=== PATIENT | male | born 1985 | race Caucasian/White ===

== ENCOUNTER 2024-12-19 20:35 | Emergency (ER) | payer OTHER ==
[~2024-12-19] VITALS: Ht 167.6 cm; Wt 65.0 kg
[2024-12-19 20:51] VITALS: O2SAT 99
[2024-12-19] MEDS ORDERED: SUMATRIPTAN SUCCINATE 6MG/0.5ML VIAL SUBCUT ONE (21:15)
[2024-12-19] MEDS ORDERED: KETOROLAC 30MG/ML VIAL IV ONE (21:15)
[2024-12-19] MEDS ORDERED: DEXAMETHASONE 10 MG/ML VIAL IV ONE (21:15)
[2024-12-19] MEDS ORDERED: DIPHENHYDRAMINE 50MG/ML VIAL IV ONE (21:15)
[2024-12-19] MEDS: PROCHLORPERAZINE 10MG/2ML VIAL IV ONE (23:39)
[2024-12-19] MEDS: KETOROLAC 30MG/ML VIAL IV NR (23:39)
[2024-12-19] MEDS: SUMATRIPTAN SUCCINATE 6MG/0.5ML VIAL SUBCUT NR (23:40)
[2024-12-19] MEDS: DIPHENHYDRAMINE 50MG/ML VIAL IV NR (23:40)
[2024-12-19] MEDS: DEXAMETHASONE 10 MG/ML VIAL IV NR (23:40)
[2024-12-20] MEDS ORDERED: KETO10TA2 MT (00:55)
[2024-12-20] MEDS ORDERED: SUMA11AE2 BOTHNSTRLS (00:55)
[2024-12-20] MEDS ORDERED: ACET-2708 MT (00:55)
[2024-12-20 02:03] VITALS: BP 142/79; PULSE 87; RESP 18; TEMP 36.7; O2SAT 100
== END 2024-12-20 02:05 | disposition home or self-care (01) ==
LOC: ER 20:35
DX: G43.909 Migraine, unspecified, not intractable, without status migrainosus (principal)
CPT/HCPCS: 99284; 96374; 96375; 96372; J1885; J1100; J1200; J0780; J3030